=== PATIENT | male | born 2005 | race Two or more races ===

== ENCOUNTER 2025-05-17 22:31 | Emergency (ER) | payer MEDICAID, OTHER ==
[~2025-05-17] VITALS: Ht 175.3 cm; Wt 92.4 kg
[2025-05-17 22:50] VITALS: BP 140/89; PULSE 88; RESP 16; TEMP 98.3; O2SAT 100
[2025-05-17] MEDS ORDERED: ACET500T58 PO (22:59)
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
--- NOTE | 2025-05-17 23:29 | DVH ---
CLINICAL HISTORY: headache TECHNIQUE: Helical imaging carried out from skull base to vertex without intravenous contrast. This e xam was performed according to our departmental dose optimization program. Up-to-date CT equipment an d radiation dose reduction techniques are utilized as appropriate. CTDIVol: 57.79 mGy DLP: 925.31 mGy-cm WID: COMPARISON: None FINDINGS: The ventricles and subarachnoid spaces are normal in size and configuration. There is no midline karthik ft or mass effect. The hawkins white matter interfaces are maintained. The basal cisterns are patent. Th ere is no evidence of acute intracranial hemorrhage or extra-axial fluid collection. The mastoid air cells and visualized paranasal sinuses are well-aerated. IMPRESSION: 1. No acute intracranial abnormality.
== END 2025-05-17 23:50 | disposition home or self-care (01) ==
LOC: ER 22:31
DX: G44.309 Post-traumatic headache, unspecified, not intractable (principal); Z88.0 Allergy status to penicillin; V89.2XXA Person injured in unspecified motor-vehicle accident, traffic, initial encounter; Y93.I9 Activity, other involving external motion; Y92.488 Other paved roadways as the place of occurrence of the external cause; Y99.8 Other external cause status
CPT/HCPCS: 70450